=== PATIENT | male | born 1995 | race Caucasian/White ===

== ENCOUNTER 2017-05-02 17:42 | Emergency (ER) | payer MEDICAID ==
--- NOTE | 2017-05-02 19:12 | XRAY Preliminary Report ---
Exam: XR Foot 3 View RT IMPRESSION: Normal foot radiography. [facility] SITE ID: [id number]
--- NOTE | 2017-05-02 19:14 | XRAY Preliminary Report ---
Exam: XR Ankle 3 View RT IMPRESSION: Soft tissue swelling. [facility] SITE ID: [id number]
--- NOTE | 2017-05-02 19:15 | XRAY Report ---
EXAM: RIGHT FOOT RADIOGRAPHY EXAM DATE: 05/02/2017 07:06 PM. CLINICAL HISTORY: R foot pain, TTP base 4th and 5th MT. COMPARISON: None. TECHNIQUE: 3 views. FINDINGS: Bones: Normal. No fractures or bone lesions. Joints: Normal. No subluxations. Soft Tissues: Unremarkable. IMPRESSION: Normal foot radiography. [facility] Referring Provider Line: [phone] SITE ID: [id number]
--- NOTE | 2017-05-02 19:17 | XRAY Report ---
EXAM: RIGHT ANKLE RADIOGRAPHY EXAM DATE: 05/02/2017 07:06 PM. CLINICAL HISTORY: R ankle pain. COMPARISON: None. TECHNIQUE: 3 views. FINDINGS: Bones: Normal. No fractures or bone lesions. Joints: Normal. No effusion. No subluxations. The ankle mortise is normally aligned. Soft Tissues: Mild soft tissue swelling below the malleoli. IMPRESSION: Soft tissue swelling. [facility] Referring Provider Line: [phone] SITE ID: [id number]
--- NOTE | 2017-05-02 19:22 | ED Physician Documentation ---
PD HPI LOWER EXT INJURY - Stated complaint Stated Complaint: R ANKLE PAIN - Chief complaint Chief Complaint: Ext Problem - History obtained from History obtained from: Patient - History of Present Illness PD HPI LOW EXT INJURY LOCATION: Right, Ankle, Foot Type of injury: Twist Where injury occurred: Other (dancing) Timing - onset: Last night Timing - duration: Days (1) Timing - details: Gradual onset Pain level max: 7 Pain level now: 5 Improved by: Rest, Ice, Immobilization Worsened by: Moving, Palpating Associated symptoms: Swelling. No: Weakness, Numbness, Tingling Contributing factors: No: Anticoagulated, Prior ortho surgery, Prosthetic joint Review of Systems Neurologic: denies: Focal weakness, Numbness PD PAST MEDICAL HISTORY - Past Medical History Past Medical History: No - Past Surgical History Past Surgical History: No - Present Medications Home Medications: Ambulatory Orders Medication Instructions Recorded Confirmed No Known Home Medications [No 05/02/17 05/02/17 Known Home Medications] - Allergies Allergies/Adverse Reactions: Allergies Allergy/AdvReac Type Severity Reaction Status Date / Time No Known Drug Allergies Allergy Verified 05/22/13 12:38 - Social History Does the pt smoke?: Yes Smoking Status: Current every day smoker Does the pt drink ETOH?: Yes Does the pt have substance abuse?: Yes Substance Use and Type: Marijuana - Immunizations Immunizations are current?: Yes Immunizations: TDAP current <10years - POLST Patient has POLST: No PD ED PE NORMAL - Vitals Vital signs reviewed: Yes - General General: Alert and oriented X 3, No acute distress - Derm Derm: Warm and dry - Extremities Extremities: Other (R foot/ankle - Tender to palpation at the tip of the lateral malleolus as well as the base of the fourth and fifth metatarsals. Is able to ambulate, but with a limp. Neurovascularly intact. There is soft tissue swelling. Otherwise normal examination of the foot and ankle.) - Neuro Neuro: Alert and oriented X 3 - Psych Psych: Normal mood, Normal affect Results - Vitals Vitals: Vital Signs - 24 hr 05/02/17 05/02/17 17:47 19:54 Temperature 37.0 C Heart Rate 78 82 Respiratory 16 14 Rate Blood Pressure 109/65 112/74 O2 Saturation 98 99 Oxygen O2 Source Room air - Rads (name of study) Right ankle x-ray Radiology: Prelim report reviewed, EMP read contemporaneously, See rad report ( Soft tissue swelling without acute fracture) Right foot x-ray Radiology: Prelim report reviewed, EMP read contemporaneously, See rad report ( Soft tissue swelling without acute fracture) PD MEDICAL DECISION MAKING - ED course Complexity details: reviewed results, re-evaluated patient, considered differential, d/w patient ED course: Patient is a 21-year-old male with a right foot and ankle injury. No acute findings on x-ray. Appears to be consistent with a sprain. Given crutches as well as an Aircast. Will use Motrin and Tylenol as needed for pain at home. Patient counseled regarding signs and symptoms for which I believe and urgent re -evaluation would be necessary. Patient with good understanding of and agreement to plan and is comfortable going home at this time This document was made in part using voice recognition software. While efforts are made to proofread this document, sound alike and grammatical errors may occur. Counseled regarding missed fractures secondary to acute swelling and may need repeat xrays if not improving. Departure - Departure Disposition: 01 Home, Self Care Clinical Impression: Right foot sprain Qualifiers: Encounter type: initial encounter Qualified Code(s): S93.601A - Unspecified sprain of right foot, initial encounter Condition: Good Instructions: ED Sprain Foot Follow-Up: Mateo Galo MD [Primary Care Provider] - Within 1 week Comments: Return if you worsen. Your x-rays are normal today. You can use Motrin or Tylenol as needed for pain. You may bear weight as tolerated. Discharge Date/Time: 05/02/17 19:55
[2017-05-02 19:56] VITALS: BP 112/74
== END 2017-05-02 19:55 | disposition home or self-care (01) ==
LOC: ED 17:42
DX: S93.601A Unspecified sprain of right foot, initial encounter (principal); X50.1XXA Overexertion from prolonged static or awkward postures, initial encounter; Y93.41 Activity, dancing; F17.200 Nicotine dependence, unspecified, uncomplicated
CPT/HCPCS: 99283

== ENCOUNTER 2021-11-28 15:23 | Outpatient (CLI) | payer MEDICAID | END 2021-11-28 15:24 | disposition critical access hospital (66) | LOC: EMS 15:23 | DX: R46.89 Other symptoms and signs involving appearance and behavior (principal); R45.851 Suicidal ideations; Z78.1 Physical restraint status | CPT/HCPCS: A0425; A0429; A0999 ==

== ENCOUNTER 2021-11-28 15:41 | Emergency (ER) | payer MEDICAID ==
[2021-11-28] MEDS ORDERED: OLANZapine 10 MG VIAL IM STA (16:04)
[2021-11-28 16:10] LABS: MUDS CUTOFF CONCENTRATIONS CUTOFF CONC BELOW:
[2021-11-28 16:12] LABS: BILIRUBIN,URINE NEGATIVE (NEGATIVE); GLUCOSE, URINE (UA) NEGATIVE (NEGATIVE); KETONES,URINE (UA) NEGATIVE (NEGATIVE); LEUKOCYTE ESTERASE, URINE NEGATIVE (NEGATIVE); NITRITE,URINE NEGATIVE (NEGATIVE); OCCULT BLOOD,URINE NEGATIVE (NEGATIVE); PH,URINE 6.5 PH (5.0-7.5); PROTEIN,URINE NEGATIVE (NEGATIVE); UROBILINOGEN,URINE 0.2 (NORMAL) E.U./dL (NORMAL)
[2021-11-28 16:13] LABS: BASOPHILS # (AUTO) 0.1 10^3/uL (0.0-0.1); BASOPHILS % (AUTO) 0.9 %; EOSINOPHILS # (AUTO) 0.1 10^3/uL (0.0-0.7); EOSINOPHILS % (AUTO) 1.3 %; HCT - HEMATOCRIT 48.8 % (42.0-52.0); HGB - HEMOGLOBIN 16.5 g/dL (14.0-18.0); LYMPHOCYTES # (AUTO) 2.6 10^3/uL (1.5-3.5); LYMPHOCYTES % (AUTO) 26.4 %; MEAN CORPUSCULAR HEMOGLOBIN 31.1 pg (27.0-31.0); MEAN CORPUSCULAR HGB CONC 33.8 g/dL (32.0-36.0); MEAN CORPUSCULAR VOLUME 91.9 fL (80.0-94.0); MEAN PLATELET VOLUME 10.2 fL (7.4-11.4); MONOCYTES # (AUTO) 0.8 10^3/uL (0.0-1.0); MONOCYTES % (AUTO) 7.8 %; NEUTROPHILS # (AUTO) 6.3 10^3/uL (1.5-6.6); NEUTROPHILS % (AUTO) 63.4 %; PLT - PLATELET COUNT 303 10^3/uL (130-450); RED BLOOD COUNT 5.31 10^6/uL (4.70-6.10); RED CELL DISTRIBUTION WIDTH 12.8 % (12.0-15.0); WHITE BLOOD COUNT 9.9 x10^3/uL (4.8-10.8)
[2021-11-28 16:14] LABS: CLARITY,URINE CLEAR (CLEAR)
[2021-11-28 16:15] LABS: SLIDE REVIEW? Indicated
[2021-11-28 16:23] LABS: AMPHETAMINE SCREEN,URINE NEGATIVE (NEGATIVE); BENZODIAZEPINES SCREEN, URINE NEGATIVE (NEGATIVE); COCAINE SCREEN URINE NEGATIVE (NEGATIVE); METHAMPHETAMINES SCREEN, URINE NEGATIVE (NEGATIVE); OPIATE SCREEN, URINE NEGATIVE (NEGATIVE); THC CANNABINOID SCREEN, URINE POSITIVE (NEGATIVE); TRICYCLIC ANTIDEPRESSANT,URINE NEGATIVE (NEGATIVE)
[2021-11-28 16:24] LABS: BARBITURATE SCREEN,UR NB (NEGATIVE); METHADONE SCREEN, URINE NEGATIVE (NEGATIVE); OXYCODONE SCREEN, URINE NEGATIVE (NEGATIVE); PROPOXYPHENE SCREEN, URINE NEGATIVE (NEGATIVE)
[2021-11-28 16:27] LABS: ACETAMINOPHEN < 10 ug/mL (10-30); ALBUMIN 4.5 g/dL (3.2-5.5); ALBUMIN/GLOBULIN RATIO 1.4 (1.0-2.2); ALKALINE PHOSPHATASE 64 IU/L (42-121); ALT ALANINE AMINOTRANSFERASE 23 IU/L (10-60); AST ASPARTATE AMINOTRANSFERASE 24 IU/L (10-42); BUN - BLOOD UREA NITROGEN 7 mg/dL (6-20); CALCIUM 9.2 mg/dL (8.5-10.3); CARBON DIOXIDE - CO2 23 mmol/L (21-32); CHLORIDE 101 mmol/L (101-111); CREATININE 0.6 mg/dL (0.6-1.2); ETOH - ETHANOL 243.1 mg/dL; GFR - MDRD 160 (>89); GLUCOSE 100 mg/dL (70-100); LIPASE 63 U/L (22-51); POTASSIUM 3.8 mmol/L (3.5-5.0); SALICYLATE < 6.0 mg/dL; SODIUM 137 mmol/L (135-145); TOTAL PROTEIN 7.7 g/dL (6.7-8.2)
[2021-11-28 16:38] LABS: PLATELET ESTIMATE, MANUAL NORMAL (130-450,000) (NORMAL); PLATELET MORPHOLOGY 1+ GIANT PLATELETS (NORMAL); RBC MORPHOLOGY (MULTIPLE) NORMAL APPEARANCE (NORMAL)
--- NOTE | 2021-11-28 21:17 | ED Physician Documentation ---
PD HPI MHE - Stated complaint Stated Complaint: MHE - Chief complaint Chief Complaint: MHE - History obtained from History obtained from: Patient, EMS, Police - History of Present Illness Primary symptom: Suicidal ideation Timing - onset: Today Pain level max: 0 Pain level now: 0 Contributing factors: Sig other, Substance abuse - ETOH - Additional information Additional information: 26-year-old male brought in by EMS after being placed on a psychiatric hold by police. He has been drinking alcohol today. He is generally uncooperative. He was brought in in restraints with EMS. The patient states that his girlfriend has been telling him to kill himself. He states that she gave him a knife and razor blades and told him to cut himself. He states that she laughed at him when he would not do this. He states that she wanted him to jump off of the bridge to kill himself. He states he did not do this either. He states that he loves her and she only wants what is best for him. Denies any psychiatric history. Does not take any medications. Nothing makes it better or worse Review of Systems Unable to obtain: Uncooperative Constitutional: denies: Fever GI: denies: Vomiting Musculoskeletal: denies: Neck pain, Back pain Neurologic: denies: Headache PD PAST MEDICAL HISTORY - Past Medical History Past Medical History: Yes Cardiovascular: None Respiratory: None Neuro: None Endocrine/Autoimmune: None GI: None : None HEENT: None Psych: Depression Musculoskeletal: None Derm: None - Past Surgical History Past Surgical History: No - Present Medications Home Medications: Ambulatory Orders Medication Instructions Recorded Confirmed No Known Home Medications 05/02/17 11/28/21 - Allergies Allergies/Adverse Reactions: Allergies Allergy/AdvReac Type Severity Reaction Status Date / Time No Known Drug Allergies Allergy Verified 11/28/21 15:59 - Social History Does the pt smoke?: Yes Smoking Status: Current every day smoker Does the pt drink ETOH?: Yes Does the pt have substance abuse?: Yes Substance Use and Type: Marijuana - Immunizations Immunizations are current?: Yes Immunizations: TDAP current <10years - POLST Patient has POLST: No PD ED PE NORMAL - Vitals Vital signs reviewed: Yes - General General: Well developed/nourished, Other (Alert, intoxicated, rambling.) - HEENT HEENT: PERRL, Moist mucous membranes - Neck Neck: Supple, no meningeal sign - Cardiac Cardiac: RRR - Respiratory Respiratory: No respiratory distress, Clear bilaterally - Abdomen Abdomen: Soft, Non tender, Non distended - Back Back: No spinal TTP - Derm Derm: Warm and dry - Extremities Extremities: No edema - Neuro Neuro: Other (Alert, intoxicated. Does not cooperate with the orientation questions other than oriented to self) Results - Vitals Vitals: Vital Signs - 24 hr 11/28/21 11/28/21 16:00 16:05 Temperature 36.6 C Heart Rate 77 77 Respiratory 22 24 Rate Blood Pressure 123/86 H 110/70 O2 Saturation 100 100 Oxygen O2 Source Room air - Labs Labs: Laboratory Tests 11/28/21 11/28/21 11/28/21 15:36 16:05 16:05 WBC 9.9 RBC 5.31 Hgb 16.5 Hct 48.8 MCV 91.9 MCH 31.1 H MCHC 33.8 RDW 12.8 Plt Count 303 MPV 10.2 Neut # (Auto) 6.3 Lymph # (Auto) 2.6 [place] # (Auto) 0.8 Eos # (Auto) 0.1 Baso # (Auto) 0.1 Absolute Nucleated RBC 0.00 Nucleated RBC % 0.0 Manual Slide Review Indicated Platelet Estimate NORMAL (130-450,000) Platelet Morphology 1+ GIANT PLATELETS RBC Morph Micro Appear NORMAL APPEARANCE Sodium 137 Potassium 3.8 Chloride 101 Carbon Dioxide 23 Anion Gap 13.0 BUN 7 Creatinine 0.6 Estimated GFR (MDRD) 160 Glucose 100 Calcium 9.2 Total Bilirubin 1.0 AST 24 ALT 23 Alkaline Phosphatase 64 Total Protein 7.7 Albumin 4.5 Globulin 3.2 Albumin/Globulin Ratio 1.4 Lipase 63 H TSH Urine Color YELLOW Urine Clarity CLEAR Urine pH 6.5 Ur Specific [place] <=1.005 Urine Protein NEGATIVE Urine Glucose (UA) NEGATIVE Urine Ketones NEGATIVE Urine Occult Blood NEGATIVE Urine Nitrite NEGATIVE Urine Bilirubin NEGATIVE Urine Urobilinogen 0.2 (NORMAL) Ur Leukocyte Esterase NEGATIVE Ur Microscopic Review NOT INDICATED Urine Culture Comments NOT INDICATED Salicylates < 6.0 Urine Opiates Screen NEGATIVE Ur Oxycodone Screen NEGATIVE Urine Methadone Screen NEGATIVE Ur Propoxyphene Screen NEGATIVE Acetaminophen < 10 L Ur Barbiturates Screen NB Ur Tricyclics Screen NEGATIVE Ur Phencyclidine Scrn NEGATIVE Ur Amphetamine Screen NEGATIVE U Methamphetamines Scrn NEGATIVE U Benzodiazepines Scrn NEGATIVE Urine Cocaine Screen NEGATIVE U Cannabinoids Screen POSITIVE H Ethyl Alcohol 243.1 SARS-CoV-2 (PCR) 11/28/21 11/28/21 16:05 17:00 WBC RBC Hgb Hct MCV MCH MCHC RDW Plt Count MPV Neut # (Auto) Lymph # (Auto) [place] # (Auto) Eos # (Auto) Baso # (Auto) Absolute Nucleated RBC Nucleated RBC % Manual Slide Review Platelet Estimate Platelet Morphology RBC Morph Micro Appear Sodium Potassium Chloride Carbon Dioxide Anion Gap BUN Creatinine Estimated GFR (MDRD) Glucose Calcium Total Bilirubin AST ALT Alkaline Phosphatase Total Protein Albumin Globulin Albumin/Globulin Ratio Lipase TSH 3.67 Urine Color Urine Clarity Urine pH Ur Specific [place] Urine Protein Urine Glucose (UA) Urine Ketones Urine Occult Blood Urine Nitrite Urine Bilirubin Urine Urobilinogen Ur Leukocyte Esterase Ur Microscopic Review Urine Culture Comments Salicylates Urine Opiates Screen Ur Oxycodone Screen Urine Methadone Screen Ur Propoxyphene Screen Acetaminophen Ur Barbiturates Screen Ur Tricyclics Screen Ur Phencyclidine Scrn Ur Amphetamine Screen U Methamphetamines Scrn U Benzodiazepines Scrn Urine Cocaine Screen U Cannabinoids Screen Ethyl Alcohol SARS-CoV-2 (PCR) NOT DETECTED PD MEDICAL DECISION MAKING - ED course Complexity details: reviewed results, re-evaluated patient, considered differential, d/w patient ED course: 26-year-old male presents to the emergency department with alcohol intoxication, suicidal ideation and reports that his girlfriend is telling him to kill himself. Patient was initially in soft restraints from EMS, he was given Zyprexa here to help with his anxiety, agitation. He slept for several hours in the emergency department. A repeat alcohol will be performed and the patient will need to be reevaluated to determine his mental state when he is sober. Patient will be signed out to the [facility] emergency department physician. This document was made in part using voice recognition software. While efforts are made to proofread this document, sound alike and grammatical errors may occur. Departure - Departure Clinical Impression: Suicidal ideation Alcoholic intoxication Qualifiers: Complication of substance-induced condition: uncomplicated Qualified Code(s): F10.920 - Alcohol use, unspecified with intoxication, uncomplicated Condition: Stable
[2021-11-29] MEDS ORDERED: NICOTINE 21 MG PATCH TOP STA (10:49)
[2021-11-29 12:04] LABS: MAGNESIUM 2.2 mg/dL (1.7-2.8)
--- NOTE | 2021-11-29 17:31 | ED Physician Documentation ---
ED Addendum - Addendum Addendum: 11/29/21 17:29 Patient sobered in the emergency department. Social work was consulted and the patient was able to contract for safety. He is not suicidal or homicidal at this time. Has good outpatient support with a crisis line, therapist and psychiatrist. We will trial on a small amount of Seroquel at night for sleep. Patient will refrain from any alcohol use. Patient counseled regarding signs and symptoms for which I believe and urgent re-evaluation would be necessary. Patient with good understanding of and agreement to plan and is comfortable going home at this time This document was made in part using voice recognition software. While efforts are made to proofread this document, sound alike and grammatical errors may occur. Departure - Departure Disposition: 01 Home, Self Care Clinical Impression: Suicidal ideation Alcoholic intoxication Qualifiers: Complication of substance-induced condition: uncomplicated Qualified Code(s): F10.920 - Alcohol use, unspecified with intoxication, uncomplicated Condition: Stable Instructions: ED Depression, ED Alcohol Intoxication Follow-Up: your,doctor in 1 week [Other] Prescriptions: QUEtiapine [SEROquel] 25 mg PO QPM #7 tablet Comments: Your prescriptions were sent to [facility] in [place]. Please follow-up with your doctor for further care. Please return if you worsen. Crisis Line and is available to talk to someone [email or web address] is also available to chat with someone online if you prefer. There are also many resources on this website and apps for your phone to help with your mental health You can also text the word START to [phone] to chat with someome via text.
[2021-11-29 17:52] VITALS: BP 128/72
== END 2021-11-29 17:57 | disposition home or self-care (01) ==
LOC: EDUNIT# → ED 15:41
DX: F10.920 Alcohol use, unspecified with intoxication, uncomplicated (principal); Y90.8 Blood alcohol level of 240 mg/100 ml or more; F17.200 Nicotine dependence, unspecified, uncomplicated; Z20.822 Contact with and (suspected) exposure to COVID-19
CPT/HCPCS: 36415; 80053; 80306; 80307; 80320; 80329; 81003; 82550; 83690; 83735; 84443; 85025; 87635; 93005; 96372; 99283; 99284; A9270; 81001; 87086